=== PATIENT | male | born 1980 | race African-American/Black ===

== ENCOUNTER 2018-08-23 20:53 | Emergency (ER) | payer SELFPAY ==
[~2018-08-23] VITALS: Ht 198.1 cm; Wt 138.3 kg
[2018-08-23 21:33] VITALS: BP 114/42
--- NOTE | 2018-08-23 22:15 | NUR ---
XRAY TAKEN IN ER 16. PT RETURNED TO CHAIR IN ROOM 18.
[2018-08-23] MEDS ORDERED: LIDOCAINE HCL/MPF 1% 30 ML VIAL IJ ONE (22:30)
== END 2018-08-23 23:29 | disposition home or self-care (01) ==
LOC: ER 20:57
DX: S63.287A Dislocation of proximal interphalangeal joint of left little finger, initial encounter (principal); F17.200 Nicotine dependence, unspecified, uncomplicated; W23.0XXA Caught, crushed, jammed, or pinched between moving objects, initial encounter; Y93.67 Activity, basketball; Y92.310 Basketball court as the place of occurrence of the external cause; Y99.8 Other external cause status
CPT/HCPCS: 26770; 73140 ×2; 99284; J3490